=== PATIENT | female | born 1935 | race Caucasian/White ===

== ENCOUNTER → 2017-12-01 | Outpatient (CLI) | payer MEDICARE ==
[~2017-12-01] MED LIST: AGM875T PO; ALPH1TAB8 PO; ALPR1T PO; ALPR1TAB7 PO; ALPR2TAB6 PO; AMLO5TAB2 PO; CLON1TAB4 PO; DICY20TA10 PO; DOCU-143 PO; DOCU100C37 PO; ESCI20TA38 PO; EST30C VG; FLUT16SP22 NS; HYDR-757 PO; IBUP-30 PO; IOHEXOL 350 MG/ML 100 ML (OMNIPAQUE 350) VIAL IV ONE; LACT1CAP61 PO; LEVO50TA6 PO; LEVSIN; LOSA50TA36 PO; LOSA50TA6 PO; LSNP20T PO; LVT.025T PO; LVT.05T PO; METO-333 PO; METO50TA7; MIRT30TA PO; MIRT30TA6 PO; MTC5T; NF-ESOM40C PO; NS 250 ML (IVPB) BAG IV ONE; PANT40TA PO; PANT40TA2 PO; PANT40TA3 PO; PARO40TA PO; POLY119P5 PO; POLY255P PO; PRX10T; Polyethylene Glycol PO; SCR1T1; SIME80TA6 PO; SUCR1TAB PO
[2017-12-01 11:37] LABS: BUN/CREATININE RATIO 10; CREATININE SERUM 0.86 MG/DL (0.60-1.30); GFR ESTIMATED > 60
--- NOTE | 2017-12-01 12:39 | Diagnostic Imaging Report ---
PROCEDURE: CT abdomen and pelvis with contrast. TECHNIQUE: Multiple contiguous axial images were obtained through the abdomen and pelvis after administration of intravenous contrast. INDICATION: Periumbilical abdominal pain. Patient has had prior partial small bowel resection. COMPARISON: Comparison is made with prior CT from 08/30/2015. FINDINGS: The lung bases are clear. Mild generalized low density throughout the liver is seen consistent with hepatic steatosis. No discrete liver mass is identified. The gallbladder is surgically absent. Extrahepatic bile duct appears to be stable when compared with prior study. The pancreas and spleen are unremarkable. No adrenal mass is identified. Kidneys are unremarkable. Aorta is ectatic and demonstrates atherosclerotic changes. No definite aneurysm is seen. Bowel loops are of normal caliber. No obstruction is seen. There is sigmoid diverticulosis but no evidence of acute diverticulitis. Bladder and uterus are unremarkable. No definite abdominal or pelvic lymphadenopathy is seen. IMPRESSION: 1. Hepatic steatosis. 2. Uncomplicated diverticulosis. 3. No acute feature in the abdomen or pelvis is identified. Dictated by: Dictated on workstation # [id number]
== END ==
LOC: RAD 10:45
PROVIDERS: ATTEND Surgery
DX: K76.0 Fatty (change of) liver, not elsewhere classified (principal); K57.30 Diverticulosis of large intestine without perforation or abscess without bleeding
CPT/HCPCS: 36415; 74177; 82565; 84520

== ENCOUNTER 2018-01-15 17:24 | Inpatient (IN) | payer MEDICARE ==
[~2018-01-15] VITALS: Ht 162.6 cm; Wt 52.6 kg
[~2018-01-15 17:24] MED LIST changes: +AMLO5TAB7 PO; +CLON1TAB13 PO; -CLON1TAB4 PO; +HYDR-4226 PO; -HYDR-757 PO; -IOHEXOL 350 MG/ML 100 ML (OMNIPAQUE 350) VIAL IV ONE; -LOSA50TA36 PO; +LOSA50TA7 PO; -NS 250 ML (IVPB) BAG IV ONE
[2018-01-15] MEDS ORDERED: fentaNYL INJECTION 100 MCG/2 ML AMP IVP ONE (18:00)
[2018-01-15] MEDS ORDERED: NS 250 ML (IVPB) BAG IV ONE (18:15)
[2018-01-15] MEDS ORDERED: CATHETER FLUSH 10 ML SYR IV PRN (18:15)
[2018-01-15] MEDS ORDERED: IOHEXOL 350 MG/ML 100 ML (OMNIPAQUE 350) VIAL IV ONE (18:15)
[2018-01-15 18:16] LABS: BASOPHILS % (AUTO) 1 % (0-10); EOSINOPHILS # (AUTO) 0.1 10^3/uL (0.0-0.3); EOSINOPHILS % (AUTO) 1 % (0-10); HEMATOCRIT 42 % (35-52); HEMOGLOBIN 13.7 G/DL (11.5-16.0); LYMPHOCYTES # (AUTO) 1.1 X 10^3 (1.0-4.0); LYMPHOCYTES % (AUTO) 18 % (12-44); MEAN CORPUSCULAR HEMOGLOBIN 29 PG (25-34); MEAN CORPUSCULAR HGB CONC 33 G/DL (32-36); MEAN CORPUSCULAR VOLUME 89 FL (80-99); MEAN PLATELET VOLUME 9.3 FL (7.4-10.4); MONOCYTES # (AUTO) 0.9 X 10^3 (0.0-1.0); MONOCYTES % (AUTO) 14 % (0-12); NEUTROPHILS # (AUTO) 4.3 X 10^3 (1.8-7.8); NEUTROPHILS % (AUTO) 66 % (42-75); PLATELET COUNT 393 10^3/uL (130-400); RED BLOOD COUNT 4.67 10^6/uL (4.35-5.85); RED CELL DISTRIBUTION WIDTH 14.1 % (10.0-14.5); WHITE BLOOD COUNT 6.5 10^3/uL (4.3-11.0)
[2018-01-15 18:40] LABS: ALBUMIN 4.1 GM/DL (3.2-4.5); BILIRUBIN,TOTAL 0.4 MG/DL (0.1-1.0); CALCIUM 10.1 MG/DL (8.5-10.1); POTASSIUM 3.3 MMOL/L (3.6-5.0); TOTAL PROTEIN 7.7 GM/DL (6.4-8.2)
--- NOTE | 2018-01-15 18:43 | Diagnostic Imaging Report ---
PROCEDURE: CT abdomen and pelvis with contrast. TECHNIQUE: Multiple contiguous axial images were obtained through the abdomen and pelvis after administration of intravenous contrast. INDICATION: Perirectal cellulitis. Worsening right-sided pain. COMPARISON: CT pelvis with IV contrast 12/29/2017. FINDINGS: Since the prior exam, the previously seen inflammatory changes in the right perineum and buttocks extending into the right margin of the rectum have evolved into a lobulated peripheral enhancing fluid collection measuring up to 4.7 x 6.5 x at least 10 cm. Advanced colonic diverticulosis without evidence of active diverticulitis. No evidence of bowel obstruction. No free intraperitoneal air or fluid. No lymphadenopathy. Lung bases are clear. The liver, pancreas, spleen, adrenals, kidneys, collecting systems and unopacified bladder are unremarkable. Small bowel anastomosis in the anterior abdomen. Infrarenal abdominal aortic aneurysm measures up to 3.0 cm. No acute osseous findings. IMPRESSION: Interval development of a lobulated peripherally enhancing fluid collection consistent with abscess extending from the right margin of the rectum into the right peroneal and gluteal subcutaneous soft tissues. Dictated by: Dictated on workstation # [id number]
[2018-01-15 18:46] LABS: BILIRUBIN,URINE NEGATIVE (NEGATIVE); CLARITY,URINE CLEAR; COLOR,URINE YELLOW; GLUCOSE, URINE (UA) NEGATIVE (NEGATIVE); KETONES,URINE NEGATIVE (NEGATIVE); LEUKOCYTE ESTERASE ,URINE NEGATIVE (NEGATIVE); NITRITE,URINE NEGATIVE (NEGATIVE); PH,URINE 6 (5-9); PROTEIN,URINE NEGATIVE (NEGATIVE); UROBILINOGEN,URINE NORMAL (NORMAL)
--- NOTE | 2018-01-15 18:47 | ED Integumentary General ---
General Stated Complaint: CELLULITS Source: patient Exam Limitations: no limitations History of Present Illness Date Seen by Provider: Jan 15, 2018 Time Seen by Provider: 18:45 Initial Comments To ER with reports of persistent cellulitis. Rectal in location. She was discharged from here 11 days ago for perirectal cellulitis. Surgery was consult , there was no surgical intervention is no abscess was found. She was given IV Rocephin and vancomycin. She states that she never really improved in symptoms. She then saw Dr. Lam from obstetrics and gynecology on 01/11/18 and was restarted on Augmentin for recurrence of her perirectal pain and swelling. She is still on this but presents today with worsening pain and swelling. Timing/Duration: constant Severity: moderate Location: genitalia Allergies and Home Medications Allergies Coded Allergies: Sulfa (Sulfonamide Antibiotics) (Unverified Allergy, Unknown, 01/23/14) cetirizine (Verified Allergy, Unknown, 10/08/07) ciprofloxacin (Unverified Allergy, Unknown, 01/23/14) erythromycin base (Verified Allergy, Unknown, 10/08/07) Home Medications Amlodipine Besylate 5 Mg Tablet, 5 MG PO DAILY PRN for BP>140, (Reported) TAKES AN ADDITIONAL 5MG TABLET FOR BLOOD PRESSURE ABOVE 140 Amlodipine Besylate 5 Mg Tablet, 5 MG PO DAILY, (Reported) Clonazepam 1 Mg Tablet, 1 MG PO QID PRN for ANXIETY, (Reported) Docusate Sodium 100 Mg Capsule, 100 MG PO BID PRN for CONSTIPATION-1ST LINE, ( Reported) Estrogens Conjugated 30 Gm Cr, VG 2X WEEKLY, (Reported) Ibuprofen 200 Mg Tablet, 400 MG PO TID PRN for PAIN-MILD, (Reported) Lactobacillus Rhamnosus R0011 1 Each Capsule, 1 CAP PO DAILY, (Reported) Levothyroxine Sodium 50 Mcg Tablet, 25 MCG PO DAILY, (Reported) TAKES 1/2 (50MCG) TABLET Losartan Potassium 50 Mg Tablet, 50 MG PO DAILY, (Reported) Metoprolol Tartrate 25 Mg Tablet, 12.5 MG PO DAILY PRN for PALPITATIONS, ( Reported) Mirtazapine 30 Mg Tablet, 30 MG PO HS, (Reported) Pantoprazole Sodium 40 Mg Tablet.dr, 40 MG PO BID, (Reported) Patient Home Medication List Home Medication List Reviewed: Yes Review of Systems Review of Systems Constitutional: see HPI; No chills, No fever EENTM: see HPI Respiratory: no symptoms reported Cardiovascular: no symptoms reported Genitourinary: no symptoms reported Musculoskeletal: no symptoms reported Skin: see HPI Psychiatric/Neurological: No Symptoms Reported Endocrine: No Symptoms Reported Past Tevjako-Jrabhk-Vhsuff Hx Patient Social History Recent Hopitalizations: No Seasonal Allergies Seasonal Allergies: No Past Medical History Surgeries: Yes Abdominal, Bladder Surgery, Cardiac, Coronary Stent, Gallbladder Respiratory: No Currently Using CPAP: No Currently Using BIPAP: No Cardiac: Yes Atrial Fibrillation, Coronary Artery Disease, Hypertension, Irregular Heartbeat Neurological: No TIA Reproductive Disorders: No Genitourinary: No Gastrointestinal: Yes (BLADDER PROLAPSE, ) Gastroesophageal Reflux, Obstructive Bowel, Chronic Constipation, Diverticulosis , Irritable Bowel Musculoskeletal: No Endocrine: Yes Hypothyroidsim HEENT: No Cancer: No Psychosocial: Yes Anxiety, Depression Integumentary: No (THIN SKIN) Blood Disorders: No Adverse Reaction/Blood Tranf: No Family Medical History Cardiovascular disease 19 MOTHER ( with chf) G8 BROTHER (mi of heart problems) Diabetes mellitus 19 MOTHER Hypertension 19 MOTHER Neoplasm 19 FATHER (lung ca :) No Pertinent Family Hx Physical Exam Vital Signs Capillary Refill : General Appearance: WD/WN, no apparent distress HEENT: PERRL/EOMI, normal ENT inspection Neck: non-tender, full range of motion Respiratory: no respiratory distress, no accessory muscle use Gastrointestinal: normal bowel sounds, non tender, soft Extremities: normal range of motion, non-tender Neurologic/Psychiatric: alert, oriented x 3, depressed affect Skin: normal color, warm/dry Progress/Results/Core Measures Results/Orders Lab Results Laboratory Tests Test 01/15/18 18:06 01/15/18 18:34 01/15/18 18:43 Range/Units White Blood Count 6.5 4.3-11.0 10^3/uL Red Blood Count 4.67 4.35-5.85 10^6/uL Hemoglobin 13.7 11.5-16.0 G/DL Hematocrit 42 35-52 % Mean Corpuscular Volume 89 80-99 FL Mean Corpuscular Hemoglobin 29 25-34 PG Mean Corpuscular Hemoglobin Concent 33 32-36 G/DL Red Cell Distribution Width 14.1 10.0-14.5 % Platelet Count 393 130-400 10^3/uL Mean Platelet Volume 9.3 7.4-10.4 FL Neutrophils (%) (Auto) 66 42-75 % Lymphocytes (%) (Auto) 18 12-44 % Monocytes (%) (Auto) 14 H 0-12 % Eosinophils (%) (Auto) 1 0-10 % Basophils (%) (Auto) 1 0-10 % Neutrophils # (Auto) 4.3 1.8-7.8 X 10^3 Lymphocytes # (Auto) 1.1 1.0-4.0 X 10^3 Monocytes # (Auto) 0.9 0.0-1.0 X 10^3 Eosinophils # (Auto) 0.1 0.0-0.3 10^3/uL Basophils # (Auto) 0.0 0.0-0.1 10^3/uL Sodium Level 138 135-145 MMOL/L Potassium Level 3.3 L 3.6-5.0 MMOL/L Chloride Level 103 98-107 MMOL/L Carbon Dioxide Level 25 21-32 MMOL/L Anion Gap 10 5-14 MMOL/L Blood Urea Nitrogen 4 L 7-18 MG/DL Creatinine 1.00 0.60-1.30 MG/DL Estimat Glomerular Filtration Rate 53 BUN/Creatinine Ratio 4 Glucose Level 107 H 70-105 MG/DL Calcium Level 10.1 8.5-10.1 MG/DL Corrected Calcium 10.0 8.5-10.1 MG/DL Total Bilirubin 0.4 0.1-1.0 MG/DL Aspartate Amino Transf (AST/SGOT) 22 5-34 U/L Alanine Aminotransferase (ALT/SGPT) 17 0-55 U/L Alkaline Phosphatase 87 40-136 U/L Total Protein 7.7 6.4-8.2 GM/DL Albumin 4.1 3.2-4.5 GM/DL Urine Color YELLOW Urine Clarity CLEAR Urine pH 6 5-9 Urine Specific Marlin 1.010 L 1.016-1.022 Urine Protein NEGATIVE NEGATIVE Urine Glucose (UA) NEGATIVE NEGATIVE Urine Ketones NEGATIVE NEGATIVE Urine Nitrite NEGATIVE NEGATIVE Urine Bilirubin NEGATIVE NEGATIVE Urine Urobilinogen NORMAL NORMAL MG/DL Urine Leukocyte Esterase NEGATIVE NEGATIVE Urine RBC (Auto) NEGATIVE NEGATIVE Urine RBC NONE /HPF Urine WBC NONE /HPF Urine Squamous Epithelial Cells 0-2 /HPF Urine Crystals NONE /LPF Urine Bacteria NONE /HPF Urine Casts NONE /LPF Urine Mucus NEGATIVE /LPF Urine Culture Indicated NO Lactic Acid Level 1.57 0.50-2.00 MMOL/L My Orders Orders - QUINNWADE PHOTOGRAPHIC LITHOGRAPHER Cbc With Automated Diff (01/15/18 17:55) Comprehensive Metabolic Panel (01/15/18 17:55) Ua Culture If Indicated (01/15/18 17:55) Blood Culture (01/15/18 17:55) Lactic Acid Analyzer (01/15/18 17:55) Iv Heplock-Insert (Order) (01/15/18 17:55) Fentanyl Injection (Sublimaze Injection (01/15/18 18:00) Ct Abdomen/Pelvis W (01/15/18 17:55) Iohexol Injection (Omnipaque 350 Mg/Ml 1 (01/15/18 18:15) Sodium Chloride Flush (Catheter Flush Sy (01/15/18 18:15) Ns (Ivpb) (Sodium Chloride 0.9%) (01/15/18 18:15) Medications Given in ED Current Medications Medications Dose Ordered Sig/Neha Route Start Time Stop Time Status Last Admin Dose Admin Iohexol 100 ml ONCE ONCE IV 01/15/18 18:15 01/15/18 18:16 DC 01/15/18 18:22 100 ML Sodium Chloride 10 ml NEEDED PRN IV 01/15/18 18:15 01/15/18 18:22 10 ML Sodium Chloride 250 ml ONCE ONCE IV 01/15/18 18:15 01/15/18 18:16 DC 01/15/18 18:22 80 ML Departure Communication (Admissions) Time/Spoke to Admitting Phy: 19:[address] Fang who is on-call for surgery. We will admit the patient with IV Zosyn, fentanyl, Tylenol for fever, Zofran for nausea. Clear liquids currently and nothing by mouth after midnight with a tentative plan for exam under anesthesia and incision and drainage of the right perirectal abscess at 10 AM tomorrow morning. Time/Spoke to Consulting Phy: 19:14 Dr. Randhawa from medicine will consult Impression Primary Impression: Perirectal abscess Additional Impression: Anxiety Disposition: ADMITTED INPATIENT Condition: Stable Admissions Decision to Admit Reason: Admit from ER (General) Decision to Admit/Date: Jan 15, 2018 Time/Decision to Admit Time: 19:15 Departure-Patient Inst. Referrals: HETLINGER,KG E MD (PCP/Family) Primary Care Physician WADE QUINN PHOTOGRAPHIC LITHOGRAPHER Jan 15, 2018 18:47
[2018-01-15 18:53] LABS: SQUAMOUS EPITHELIAL CELL,UR 0-2 /HPF
[2018-01-15] MEDS ORDERED: meTOprolol 5 MG/5 ML (LOPRESSOR) VIAL IV ONE (19:30)
--- NOTE | 2018-01-15 19:31 | Progress Note-Pre Operative ---
Pre-Operative Progress Note H&P Reviewed The H&P was reviewed, patient examined and no changes noted. Date Seen by Provider: Jan 15, 2018 Time Seen by Provider: 19:30 Date H&P Reviewed: Jan 15, 2018 Time H&P Reviewed: 19:30 Pre-Operative Diagnosis: perianal and ischiorectal abscess HANY HKAN MD Jan 15, 2018 19:31
[2018-01-15] MEDS ORDERED: LORazepam INJ 2 MG/ML (ATIVAN) VIAL IVP PRN (19:45)
[2018-01-15 20:05] VITALS: BP 155/91
--- NOTE | 2018-01-15 20:09 | HISTORY AND PHYSICAL ---
DATE OF SERVICE: ATTENDING PRIMARY CARE PHYSICIAN: Salvatore Garcia MD HISTORY OF PRESENT ILLNESS: The patient is an 82-year-old female who presented to the Emergency Department today with persistent cellulitis and pain in the right buttock and perineal region. She first developed this approximately 2 weeks ago and was admitted for perirectal cellulitis, however, no abscess was identified at that time. She was started on IV Rocephin and vancomycin and then eventually discharged home. She reports that the pain persisted and then she was seen by gynecology and was started on Augmentin; however, the pain and swelling have worsened since that time. A CT scan was performed, which did show a large perianal and perirectal abscess with the dimensions 5 x 6 x 10 cm in size. She does not report taking any immunosuppressants including no steroids. PAST MEDICAL HISTORY: Coronary artery disease; hypertension; history of atrial fibrillation, which is controlled; history of bladder prolapse; gastroesophageal reflux disease; chronic constipation; diverticulosis; irritable bowel syndrome; anxiety; depression. PAST SURGICAL HISTORY: Laparoscopic cholecystectomy, bladder suspension. ALLERGIES: SULFA, CETIRIZINE, CIPROFLOXACIN, ERYTHROMYCIN. MEDICATIONS: Amlodipine 5 mg daily, clonazepam 1 mg q.i.d. p.r.n., Colace 100 mg b.i.d., estrogen 30 g cream 2 times a week, levothyroxine 50 mcg daily, losartan 50 mg daily, metoprolol 25 mg daily, mirtazapine 30 mg at bedtime, Protonix 40 mg b.i.d. SOCIAL HISTORY: Negative smoke, negative alcohol. FAMILY HISTORY: Brother; diabetes, history of myocardial infarction. Mother; CHF, hypertension. Father, lung cancer. VITAL SIGNS: Stable, afebrile. REVIEW OF SYSTEMS: Well-nourished female currently guarded secondary to the right-sided perianal and perirectal pain. She is not experiencing any shortness of breath or difficulty breathing. No chest pain, palpitations or diaphoresis. No nausea or vomiting. History of constipation. No diarrhea, no red blood per rectum, no dark tarry stools. No fever or chills. No recent inadvertent weight loss. All other review of systems is negative. PHYSICAL EXAMINATION: CHEST: Clear. Good breath sounds bilaterally. HEART: Regular, no murmurs. EXTREMITIES: No lower extremity edema. Negative Homans sign. HEENT: No scleral icterus. NECK: No cervical lymphadenopathy. ABDOMEN: Soft, nontender, nondistended. PERINEUM: There is a redness and swelling along the right perianal region with fluctuance consistent with an abscess. LABORATORY DATA: WBC 6.5, hemoglobin 13.7, hematocrit 42, platelets 393, BUN 4, creatinine 1.0. Urinalysis is normal. ASSESSMENT AND PLAN: An 82-year-old female with right-sided perianal and perirectal abscess of significant size and up to 10 cm in largest dimension. We will admit her, start her on IV fluids and antibiotics and proceed with anorectal exam under anesthesia as well as incision and drainage of the abscess as well as a Upton drain placement. Job ID: [id number] DocumentID: [id number] Dictated Date: 01/15/2018 19:30:26 Printing Engineer Date: 01/15/2018 20:08:10 Dictated By: HANY KHAN MD
[2018-01-15] MEDS ORDERED: PIPERACILLIN/TAZO 4.5 GM/NS 100 ML IV NR ×2 (20:15)
[2018-01-15] MEDS ORDERED: ACETAMINOPHEN 325 MG TABLET PO PRN (20:30)
[2018-01-15] MEDS: fentaNYL INJECTION 100 MCG/2 ML AMP IV PRN (20:38)
[2018-01-15] MEDS: LORazepam INJ 2 MG/ML (ATIVAN) VIAL IV PRN (20:39)
[2018-01-15] MEDS: NS W/KCL 40 MEQ/L 1,000 ML IV SCH (20:39)
[2018-01-16] VITALS: BP 114/69
[2018-01-16] MEDS: PIPERACILLIN/TAZO 4.5 GM/NS 100 ML IV SCH ×6 (02:07→17:37)
[2018-01-16 04:00] VITALS: BP 120/73
[2018-01-16] MEDS ORDERED: AMOX-358 PO (07:49)
[2018-01-16 08:00] VITALS: BP 131/76
[2018-01-16] MEDS: NS W/KCL 40 MEQ/L 1,000 ML IV SCH (08:03)
[2018-01-16] MEDS: LORazepam INJ 2 MG/ML (ATIVAN) VIAL IV PRN (08:03)
[2018-01-16] MEDS: ONDANSETRON 4 MG/2 ML (SDV) Z0FRAN IV PRN (08:03)
[2018-01-16] MEDS ORDERED: fentaNYL INJECTION 100 MCG/2 ML AMP ONE (09:37)
[2018-01-16] MEDS ORDERED: FAMOTIDINE 20MG/2ML IV (PEPCID) ONE (09:43)
[2018-01-16] MEDS ORDERED: LACTATED RINGERS 1,000 ML IV PRN (09:53)
[2018-01-16] MEDS ORDERED: LIDOCAINE PF 2% 5 ML (XYLOCAINE) VIAL ONE (09:59)
[2018-01-16] MEDS ORDERED: ONDANSETRON 4 MG/2 ML (SDV) Z0FRAN ONE (09:59)
[2018-01-16] MEDS ORDERED: proPOfol 200 MG/20 ML (DIPRIVAN) VIAL IV ONE (09:59)
[2018-01-16] MEDS ORDERED: DEXAMETHASONE 10 MG/ML (DECADRON) 1 ML VIAL ONE (09:59)
[2018-01-16] MEDS ORDERED: SEVOFLURANE (ULTANE) 15 ML INHAL SOLN ONE (09:59)
[2018-01-16] MEDS ORDERED: BUP/EPI 0.5% 1:200,000 (SENSORCAINE) 30 ML VIAL ONE (10:01)
[2018-01-16] MEDS ORDERED: morphine INJ 10 MG/ML 1ML (SYR OR VIAL) ONE (10:17)
--- NOTE | 2018-01-16 11:15 | Progress Note-Post Operative ---
Post-Operative Progess Note Surgeon (s)/Audit Senior Associate (s) Surgeon HANY KHAN MD Audit Senior Associate: rach gregorio APPLICATIONS PACKAGER Pre-Operative Diagnosis perianal and ischiorectal abscess Post-Operative Diagnosis same Procedure & Operative Findings Date of Procedure 01/16/18 Procedure Performed/Findings incision and drainage ischiorectal abscess. Anesthesia Type general LMA Estimated Blood Loss Estimated blood loss (mL): minimal Specimens/Packing Specimens Removed drainage abscess HANY KHAN MD Jan 16, 2018 11:15 am
[2018-01-16] MEDS ORDERED: morphine INJ 10 MG/ML 1ML (SYR OR VIAL) IVP ONE (11:30)
[2018-01-16] MEDS ORDERED: ONDANSETRON 4 MG/2 ML (SDV) Z0FRAN IVP PRN (11:30)
[2018-01-16 12:00] VITALS: BP 135/78
[2018-01-16] MEDS ORDERED: DOCUSATE SODIUM 100 MG (COLACE) CAP PO PRN (15:00)
[2018-01-16] MEDS ORDERED: IBUPROFEN TABLET 200 MG TAB PO PRN (15:00)
[2018-01-16] MEDS ORDERED: meTOprolol TARTRATE 25 MG (LOPRESSOR) TABLET PO PRN (15:00)
[2018-01-16 15:41] VITALS: BP 132/81
[2018-01-16] MEDS: clonazePAM 1 MG (KlonoPIN) TAB PO PRN (16:49)
[2018-01-16] MEDS ORDERED: PANTOPRAZOLE 40 MG (PROTONIX) TAB PO ONE (17:33)
[2018-01-16] MEDS: PANTOPRAZOLE 40 MG (PROTONIX) TAB PO SCH (17:37)
[2018-01-16 19:42] VITALS: BP 118/71
--- NOTE | 2018-01-16 19:47 | OPERATIVE REPORT ---
DATE OF SERVICE: 01/16/2018 ATTENDING PRIMARY CARE PHYSICIAN: Dr. Salvatore Garcia. PREOPERATIVE DIAGNOSIS: Perianal and ischiorectal abscess. POSTOPERATIVE DIAGNOSIS: Perianal and ischiorectal abscess. PROCEDURE: Incision and drainage of perirectal and ischiorectal abscess. SURGEON: Hany Khan MD ATTRACTIONS ASSOCIATE: Terry Nuñez APRN. ANESTHESIA: General laryngeal mask airway. ESTIMATED BLOOD LOSS: Minimal. FINDINGS: Large abscess, which was on the right side of the rectum; however, crossing midline posteriorly and to the level of the puborectalis muscle. DISPOSITION: The patient tolerated the procedure well. INDICATIONS: The patient is an 82-year-old female who presented with a persistent cellulitis, pain of the right buttock region and perineal region. She first developed this two weeks ago and was admitted for perirectal cellulitis; however, no abscess was identified at that time. She was started on IV Rocephin and vancomycin and eventually discharged home. She reports that the pain persisted and then worsened over time and was then seen by her container packer operator and was started on Augmentin; however, the pain and swelling worsened. A CT scan was performed, which showed a large perirectal and ischiorectal abscess 5 x 6 x 10 cm in size. DESCRIPTION OF PROCEDURE: The patient was brought to the operating room, laid supine on the table. After adequate IV pain sedative medications and general laryngeal mask airway intubation, the patient was placed in lithotomy and the perineum was prepped and draped in standard surgical fashion. A 0.5% Marcaine with epinephrine was then used to anesthetize the right perirectal region. A crescent-shaped skin incision was then made using a 15 blade. The more superficial component of the perirectal abscess was then identified. We then proceeded with a blunt dissection using finger sweep motion opening and draining the other two abscesses. The abscess did cross the midline posteriorly and did reach the puborectalis muscle superiorly. Fluid was sent for culture and sensitivity. The abscess cavity was then copiously irrigated and suctioned out. A 1-inch Jose Angel drain was then placed to keep the cavity stented open and sutured to the skin using interrupted 2-0 silk sutures. The wound was then covered with gauze and ABD pad. The patient tolerated the procedure well. We will continue with wound care with Sitz baths q.i.d. as well as frequent dressing changes. We will also continue with IV antibiotics and pain control. Job ID: [id number] DocumentID: [id number] Dictated Date: 01/16/2018 11:30:41 Top Precipitator Operator Helper Date: 01/16/2018 19:46:23 Dictated By: HANY KHAN MD MTDD
[2018-01-16] MEDS: MIRTAZAPINE 15 MG (REMERON) TAB PO SCH (20:39)
[2018-01-17] VITALS (7 sets, daily range): BP systolic 115–149; BP diastolic 67–79
[2018-01-17] MEDS: PIPERACILLIN/TAZO 4.5 GM/NS 100 ML IV SCH ×6 (01:25→17:08)
[2018-01-17] MEDS: fentaNYL INJECTION 100 MCG/2 ML AMP IV PRN ×2 (01:32→12:28)
[2018-01-17] MEDS: LEVOTHYROXINE 25 MCG (LEVOTHROID) TAB PO SCH (08:14)
[2018-01-17] MEDS: PANTOPRAZOLE 40 MG (PROTONIX) TAB PO SCH ×2 (08:14→20:11)
[2018-01-17] MEDS: amLODIPine 5 MG (NORVASC) TAB PO SCH (08:14)
[2018-01-17] MEDS: clonazePAM 1 MG (KlonoPIN) TAB PO PRN ×2 (08:14→18:12)
[2018-01-17] MEDS: LACTOBACILLUS Acidoph/Bulgar (LACTINEX/FLORANEX) TAB PO SCH (08:14)
[2018-01-17] MEDS: LOSARTAN 50 MG (COZAAR) TAB PO SCH (08:14)
--- NOTE | 2018-01-17 10:14 | Progress Note (SOAP) ---
Subjective Date Seen by Provider: Jan 17, 2018 Time Seen by Provider: 09:40 Subjective/Events-last exam Patient seen with Dr. Fang. Patient reports doing well. Tolerating diet and ambulating. Having BMs and passing gas. No fever/chills. Reports minimal discomfort from right buttock area. Reports that she has been changing the dressing herself when she goes to the bathroom. Focused Exam Lactate Level 01/15/18 18:43: Lactic Acid Level 1.57 Objective Exam Vital Signs Date Time Temp Pulse Resp B/P (MAP) Pulse Ox O2 Delivery O2 Flow Rate FiO2 01/17/18 08:13 98.9 65 14 149/75 (99) 95 Room Air 01/17/18 07:00 66 01/17/18 04:00 97.2 72 20 129/79 (96) 96 Room Air 01/17/18 01:00 75 01/17/18 00:00 97.8 78 20 125/78 (94) 95 Room Air 01/16/18 19:42 98.2 81 18 118/71 (87) 94 Room Air 01/16/18 19:00 95 01/16/18 15:41 98.1 99 18 132/81 (98) 96 Room Air 01/16/18 13:00 100 01/16/18 12:00 97.6 83 18 135/78 (97) 93 Room Air I & O 01/17/18 07:00 Intake Total 2650 ml Output Total 2850 ml Balance -200 ml Capillary Refill : Less Than 3 Seconds General Appearance: No Apparent Distress, WD/WN Neck: Full Range of Motion, Normal Inspection, Non Tender, Supple Respiratory: Chest Non Tender, No Accessory Muscle Use, No Respiratory Distress Cardiovascular: Regular Rate, Rhythm, No Murmur Gastrointestinal: normal bowel sounds, non tender, soft Extremity: Normal Capillary Refill, Normal Inspection, Normal Range of Motion Neurologic/Psychiatric: Alert, Oriented x3 Skin: Normal Color, Warm/Dry (There is a open incision of the right buttock with liam drain in place. There is some minimal bloody drainage. No redness or purulent drainage.) Results Lab Microbiology 01/15/18 Blood Culture - Preliminary, Resulted No growth 01/16/18 Gram Stain - Final, Resulted 01/16/18 Anaerobic Culture - Preliminary, Resulted Sent To [facility] 01/16/18 Surgical Culture - Preliminary, Resulted Sent To [facility] Assessment/Plan Assessment/Plan Assess & Plan/Chief Complaint An 82 year old female with a ischiorectal abscess who is S/P I&D. VSS. Continue with medical management with IV antibiotics, pain and nausea medication. Dressing changes BID and as needed. Clinical Quality Measures DVT/VTE Risk/Contraindication: Risk Factor Score Per Nursin RFS Level Per Nursing on Admit: 3=High MAMI JACOBSEN APRN Jan 17, 2018 10:14
[2018-01-17] MEDS: HYDROcodone/APAP 7.5 MG/325 MG (LORTAB, LORCET PLUS) TABLET PO PRN (10:38)
--- NOTE | 2018-01-17 10:58 | Consultation-Hospitalist ---
HPI History of Present Illness: HPI/Chief Complaint Pt is an 82yoCF known to me from recent admission who was admitted to the hospital due to perirectal abscess. She underwent drainage under anesthesia yesterday by Dr Fang. I am consulted from medical management. She states she is doing well. She is having loose bowel movements and eating and drinking well. She states she just now developed some pain but otherwise has had minimal pain. She has no concerns or complaints. 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 Patients Allergies have been reviewed. Allergies Allergies Coded Allergies Sulfa (Sulfonamide Antibiotics) (Unverified Allergy, Unknown, 01/23/14) cetirizine (Verified Allergy, Unknown, 10/08/07) ciprofloxacin (Unverified Allergy, Unknown, 01/23/14) erythromycin base (Verified Allergy, Unknown, 10/08/07) Past Yfojshs-Aczqqi-Xznecj Hx Past Med/Social Hx: Reviewed Nursing Past Med/Soc Hx Patient Social History Alcohol Use: Denies Use Recreational Drug Use: No Smoking Status: Never a Smoker Physical Abuse Screen: No Sexual Abuse: No Recent Foreign Travel: No Contact w/other who traveled: No Recent Hopitalizations: Yes Recent Infectious Disease Expo: No Immunizations Up To Date Tetanus Booster (TDap): Unknown Seasonal Allergies Seasonal Allergies: No Past Medical History Surgeries: Abdominal, Bladder Surgery, Cardiac, Coronary Stent, Gallbladder Currently Using CPAP: No Currently Using BIPAP: No Cardiac: Atrial Fibrillation, Coronary Artery Disease, Hypertension, Irregular Heartbeat Neurological: TIA Reproductive: No Sexually Transmitted Disease: No HIV/AIDS: No Gastrointestinal: Gastroesophageal Reflux, Obstructive Bowel, Chronic Constipation, Diverticulosis, Irritable Bowel Endocrine: Hypothyroidsim Psychosocial: Anxiety, Depression History of Blood Disorders: No Adverse Reaction to Blood Dooley: No Family History Cardiovascular disease 19 MOTHER ( with chf) G8 BROTHER (mi of heart problems) Diabetes mellitus 19 MOTHER Hypertension 19 MOTHER Neoplasm 19 FATHER (lung ca :) Heart Disease, Cancer, Diabetes, Hypertension Review of Systems Constitutional: No chills, No fever EENTM: No blurred vision, No double vision, No nose congestion, No throat pain Respiratory: No cough, No dyspnea on exertion, No short of breath Cardiovascular: No chest pain, No edema, No palpitations Gastrointestinal: No abdominal pain, No constipation, No nausea, No vomiting; other (rectal pain) Genitourinary: No dysuria, No frequency Musculoskeletal: No joint pain, No muscle pain Skin: No lesions, No rash Psychiatric/Neurological: Denies Headache, Denies Numbness, Denies Tingling Physical Exam Physical Exam Vital Signs Vital Signs - First Documented 01/15/18 01/15/18 17:44 19:48 Temp 97.5 Pulse 95 Resp 17 B/P (MAP) 139/99 (112) Pulse Ox 97 Capillary Refill : Less Than 3 Seconds Height, Weight, BMI Height: 5'4.00" Weight: 116lbs. 0.1oz. [id number]; 21.3 BMI Method:Stated General Appearance: No Apparent Distress, WD/WN HEENT: PERRL/EOMI, Moist Mucous Membranes Neck: Non Tender, Supple Respiratory: Lungs Clear, No Respiratory Distress Cardiovascular: Regular Rate, Rhythm, No Murmur Gastrointestinal: Normal Bowel Sounds, Non Tender, Soft Extremity: Normal Capillary Refill, No Calf Tenderness Neurologic/Psychiatric: Alert, Oriented x3, Normal Mood/Affect Skin: Normal Color, Warm/Dry Results Results/Procedures Labs Laboratory Tests 01/15/18 18:06 Patient resulted labs reviewed. Imaging: Reviewed Imaging Report Assessment/Plan Assessment and Plan Assess & Plan/Chief Complaint Perirectal abscess Diagnosis/Problems Diagnosis/Problems (1) Perirectal abscess Status: Acute Assessment & Plan: POD #1 Management per primary Pain management Await cultures Continue on Zosyn (2) Hypertension Status: Chronic Assessment & Plan: Well controlled, trend Qualifiers: Hypertension type: essential hypertension Qualified Codes: I10 - Essential (primary) hypertension (3) Hypothyroidism Status: Chronic Assessment & Plan: Continue home supplement Qualifiers: Hypothyroidism type: acquired Qualified Codes: E03.9 - Hypothyroidism, unspecified (4) Anxiety Status: Chronic Assessment & Plan: Ativan ordered Continue on Remeron Mood much improved from last admission Clinical Quality Measures DVT/VTE Risk/Contraindication: Risk Factor Score Per Nursin RFS Level Per Nursing on Admit: 3=High VETO HORTON MD Jan 17, 2018 10:58 am
--- NOTE | 2018-01-17 12:04 | Anesthesia-General Post-Op ---
General Patient Condition Mental Status/LOC: Same as Preop Cardiovascular: Satisfactory Nausea/Vomiting: Absent Respiratory: Satisfactory Pain: Controlled Complications: Absent Post Op Complications Complications None Follow Up Care/Instructions Patient Instructions None needed. Anesthesia/Patient Condition Patient Condition Patient is doing well, no complaints, stable vital signs, no apparent adverse anesthesia problems. No complications reported per nursing. GABRIELA BARRAGAN CRNA Jan 17, 2018 12:04
[2018-01-17] MEDS: ONDANSETRON 4 MG/2 ML (SDV) Z0FRAN IV PRN (17:07)
[2018-01-17] MEDS: MIRTAZAPINE 15 MG (REMERON) TAB PO SCH (20:11)
[2018-01-18] MEDS: PIPERACILLIN/TAZO 4.5 GM/NS 100 ML IV SCH ×6 (02:08→16:50)
[2018-01-18] MEDS: clonazePAM 1 MG (KlonoPIN) TAB PO PRN ×2 (03:08→20:07)
[2018-01-18 04:49] VITALS: BP 120/70
[2018-01-18 05:48] LABS: BASOPHILS % (AUTO) 0 % (0-10); EOSINOPHILS # (AUTO) 0.1 10^3/uL (0.0-0.3); EOSINOPHILS % (AUTO) 1 % (0-10); HEMATOCRIT 35 % (35-52); HEMOGLOBIN 11.8 G/DL (11.5-16.0); LYMPHOCYTES # (AUTO) 1.4 X 10^3 (1.0-4.0); LYMPHOCYTES % (AUTO) 20 % (12-44); MEAN CORPUSCULAR HEMOGLOBIN 30 PG (25-34); MEAN CORPUSCULAR HGB CONC 34 G/DL (32-36); MEAN CORPUSCULAR VOLUME 90 FL (80-99); MEAN PLATELET VOLUME 9.3 FL (7.4-10.4); MONOCYTES # (AUTO) 0.9 X 10^3 (0.0-1.0); MONOCYTES % (AUTO) 13 % (0-12); NEUTROPHILS # (AUTO) 4.6 X 10^3 (1.8-7.8); NEUTROPHILS % (AUTO) 65 % (42-75); PLATELET COUNT 286 10^3/uL (130-400); RED BLOOD COUNT 3.91 10^6/uL (4.35-5.85); RED CELL DISTRIBUTION WIDTH 14.3 % (10.0-14.5)
[2018-01-18 06:08] LABS: BUN/CREATININE RATIO 6; CALCIUM 9.2 MG/DL (8.5-10.1); CARBON DIOXIDE 22 MMOL/L (21-32); CHLORIDE 110 MMOL/L (98-107); CREATININE SERUM 0.87 MG/DL (0.60-1.30); GFR ESTIMATED > 60; GLUCOSE 86 MG/DL (70-105); POTASSIUM 3.5 MMOL/L (3.6-5.0); SODIUM 141 MMOL/L (135-145)
[2018-01-18 08:00] VITALS: BP 136/79
[2018-01-18] MEDS: PANTOPRAZOLE 40 MG (PROTONIX) TAB PO SCH ×2 (08:16→20:07)
[2018-01-18] MEDS: LOSARTAN 50 MG (COZAAR) TAB PO SCH (08:16)
[2018-01-18] MEDS: amLODIPine 5 MG (NORVASC) TAB PO SCH (08:16)
[2018-01-18] MEDS: LEVOTHYROXINE 25 MCG (LEVOTHROID) TAB PO SCH (08:16)
[2018-01-18] MEDS: LACTOBACILLUS Acidoph/Bulgar (LACTINEX/FLORANEX) TAB PO SCH (08:16)
[2018-01-18] MEDS ORDERED: KCL 20 MEQ TAB (K-DUR) PO ONE (08:30)
--- NOTE | 2018-01-18 08:36 | Progress Note-Hospitalist ---
Subjective HPI/CC On Admission Date Seen by Provider: Jan 18, 2018 Time Seen by Provider: 08:31 Pt is an 82yoCF known to me from recent admission who was admitted to the hospital due to perirectal abscess. She underwent drainage under anesthesia yesterday by Dr Fang. I am consulted from medical management. She states she is doing well. She is having loose bowel movements and eating and drinking well. She states she just now developed some pain but otherwise has had minimal pain. She has no concerns or complaints. Subjective/Events-last exam Pt reports some pain near her surgical site worse after sitz bath. Discussed with RN that she doesn't like Lortab or Fentanyl as the make her sick or sleepy and refuses them for pain. Focused Exam Lactate Level 01/15/18 18:43: Lactic Acid Level 1.57 Objective Exam Vital Signs Vital Signs Date Time Temp Pulse Resp B/P (MAP) Pulse Ox O2 Delivery O2 Flow Rate FiO2 01/18/18 04:49 99.6 65 20 120/70 (87) 96 Room Air Capillary Refill : Less Than 3 Seconds General Appearance: No Apparent Distress, WD/WN Respiratory: Lungs Clear, No Respiratory Distress Cardiovascular: Regular Rate, Rhythm, No Murmur Gastrointestinal: Normal Bowel Sounds, Non Tender, Soft Extremity: No Calf Tenderness, No Pedal Edema Neurologic/Psychiatric: Alert, Oriented x3, Other (flat affect) Results/Procedures Lab Laboratory Tests 01/18/18 05:04 Patient resulted labs reviewed. Imaging: Reviewed Imaging Report Assessment/Plan Assessment and Plan Assess & Plan/Chief Complaint Perirectal abscess Diagnosis/Problems Diagnosis/Problems (1) Perirectal abscess Status: Acute Assessment & Plan: POD #2 Management per primary Pain management- will decrease fentanyl and add tramadol Await cultures- sent to [facility] Continue on Zosyn (2) Hypertension Status: Chronic Assessment & Plan: Well controlled, trend Qualifiers: Hypertension type: essential hypertension Qualified Codes: I10 - Essential (primary) hypertension (3) Hypothyroidism Status: Chronic Assessment & Plan: Continue home supplement Qualifiers: Hypothyroidism type: acquired Qualified Codes: E03.9 - Hypothyroidism, unspecified (4) Anxiety Status: Chronic Assessment & Plan: Ativan ordered Continue on Remeron Clinical Quality Measures DVT/VTE Risk/Contraindication: Risk Factor Score Per Nursin RFS Level Per Nursing on Admit: 3=High VETO HORTON MD Jan 18, 2018 08:36
--- NOTE | 2018-01-18 10:01 | Progress Note (SOAP) ---
Subjective Date Seen by Provider: Jan 18, 2018 Time Seen by Provider: 09:15 Subjective/Events-last exam Patient seen with Dr. Fang. Patient reports that she is depressed about the her wound. Explained to patient that we could get her help to take care of it. Patient denies any N/V as well as no fever/chills. Tolerating diet and ambulating. Having BMs. She does report increased discomfort of the right buttock area. Focused Exam Lactate Level 01/15/18 18:43: Lactic Acid Level 1.57 Objective Exam Vital Signs Date Time Temp Pulse Resp B/P (MAP) Pulse Ox O2 Delivery O2 Flow Rate FiO2 01/18/18 08:00 98.4 65 16 136/79 (98) 96 Room Air 01/18/18 04:49 99.6 65 20 120/70 (87) 96 Room Air 01/17/18 23:48 97.1 68 20 119/71 (87) 97 Room Air 01/17/18 19:41 97.9 62 18 124/70 (88) 94 Room Air 01/17/18 15:18 98.4 69 18 127/67 (87) 95 Room Air 01/17/18 12:00 98.3 71 20 115/69 (84) 96 Room Air I & O 01/18/18 07:00 Intake Total 2410 ml Output Total 2000 ml Balance 410 ml Capillary Refill : Less Than 3 Seconds General Appearance: No Apparent Distress, WD/WN Neck: Full Range of Motion, Normal Inspection, Non Tender, Supple Respiratory: Chest Non Tender, No Accessory Muscle Use, No Respiratory Distress Cardiovascular: Regular Rate, Rhythm, No Murmur Gastrointestinal: normal bowel sounds, non tender, soft Extremity: Normal Capillary Refill, Normal Inspection, Normal Range of Motion Neurologic/Psychiatric: Alert, Oriented x3 Skin: Normal Color, Warm/Dry, Other (Right buttock incision with liam drain. Minimal bloody drainge. No redness.) Results Lab Laboratory Tests 01/18/18 05:04: White Blood Count 7.0, Red Blood Count 3.91L, Hemoglobin 11.8, Hematocrit 35, Mean Corpuscular Volume 90, Mean Corpuscular Hemoglobin 30, Mean Corpuscular Hemoglobin Concent 34, Red Cell Distribution Width 14.3, Platelet Count 286, Mean Platelet Volume 9.3, Neutrophils (%) (Auto) 65, Lymphocytes (%) (Auto) 20, Monocytes (%) (Auto) 13H, Eosinophils (%) (Auto) 1, Basophils (%) (Auto) 0, Neutrophils # (Auto) 4.6, Lymphocytes # (Auto) 1.4, Monocytes # (Auto) 0.9, Eosinophils # (Auto) 0.1, Basophils # (Auto) 0.0, Sodium Level 141, Potassium Level 3.5L, Chloride Level 110H, Carbon Dioxide Level 22, Anion Gap 9, Blood Urea Nitrogen 5L, Creatinine 0.87, Estimat Glomerular Filtration Rate > 60, BUN/ Creatinine Ratio 6, Glucose Level 86, Calcium Level 9.2 Microbiology 01/15/18 Blood Culture - Preliminary, Resulted No growth 01/16/18 Gram Stain - Final, Resulted 01/16/18 Anaerobic Culture - Preliminary, Resulted Sent To [facility] 01/16/18 Surgical Culture - Preliminary, Resulted Staphylococcus aureus Assessment/Plan Assessment/Plan Assess & Plan/Chief Complaint An 82 year old female with a ischiorectal abscess who is S/P I&D. VSS. Continue with medical management with IV antibiotics, pain and nausea medication. Dressing changes BID and as needed. Clinical Quality Measures DVT/VTE Risk/Contraindication: Risk Factor Score Per Nursin RFS Level Per Nursing on Admit: 3=MAMI Witt APRN Jan 18, 2018 10:01 am
[2018-01-18] MEDS ORDERED: fentaNYL INJECTION 100 MCG/2 ML AMP IV PRN (10:30)
[2018-01-18 12:00] VITALS: BP 109/73
[2018-01-18] MEDS ORDERED: HYDR-34 PO (12:34)
--- NOTE | 2018-01-18 12:38 | Discharge Inst-Surgical ---
D/C Lap Instructions-KIDO New, Converted, or Re-Newed RX: RX on Chart Follow Up Appt in 2 weeks Activity as tolerated No driving for 24 hours No [address] while on pain medications Sitz bath BID and after BM. Stool softener daily wound: leave liam drain in. gauze followed by absorbent pad BID and PRN. Regular Diet Symptoms to Report: Fever over 101 degree F, Nausea/Vomiting Infection Signs and Symptoms to report: Increased redness, Foul odor of wound, Increased drainage Bathing instructions: May shower Operative Area Clean/Dry; Keep incision clean/dry If any problems/questions: Contact your physician or go to Emergency Room HANY KHAN MD Jan 18, 2018 12:38 pm
[2018-01-18] MEDS ORDERED: AMOX-358 PO ×2 (14:47→14:52)
[2018-01-18] MEDS ORDERED: TRAM50TA2 PO (14:49)
[2018-01-18 15:14] VITALS: BP 110/68
[2018-01-18 19:18] VITALS: BP 134/79
[2018-01-18] MEDS: MIRTAZAPINE 15 MG (REMERON) TAB PO SCH (20:07)
[2018-01-19] VITALS: BP 120/66
[2018-01-19] MEDS: PIPERACILLIN/TAZO 4.5 GM/NS 100 ML IV SCH ×4 (02:02→10:29)
[2018-01-19 04:00] VITALS: BP 141/79
[2018-01-19 08:00] VITALS: BP 152/78
--- NOTE | 2018-01-19 08:11 | Progress Note-Hospitalist ---
Subjective HPI/CC On Admission Date Seen by Provider: Jan 19, 2018 Time Seen by Provider: 08:10 Pt is an 82yoCF known to me from recent admission who was admitted to the hospital due to perirectal abscess. She underwent drainage under anesthesia yesterday by Dr Fang. I am consulted from medical management. She states she is doing well. She is having loose bowel movements and eating and drinking well. She states she just now developed some pain but otherwise has had minimal pain. She has no concerns or complaints. Subjective/Events-last exam Pt complain of rectal pain still. Tried tramadol this morning but still having pain. Does not want to take Lortab as it makes her sleeping, same of IV fentanyl. Motrin has not helped either. Discussed options for pain management and she agrees to trying half a lortab. Objective Exam Vital Signs Vital Signs Date Time Temp Pulse Resp B/P (MAP) Pulse Ox O2 Delivery O2 Flow Rate FiO2 //18 04:00 97.1 65 20 141/79 (99) 93 Room Air Capillary Refill : Less Than 3 Seconds General Appearance: No Apparent Distress, WD/WN Respiratory: Lungs Clear, No Respiratory Distress Cardiovascular: Regular Rate, Rhythm, No Murmur Gastrointestinal: Normal Bowel Sounds, Soft Neurologic/Psychiatric: Alert, Oriented x3 Results/Procedures Lab Patient resulted labs reviewed. Imaging: Reviewed Imaging Report Assessment/Plan Assessment and Plan Assess & Plan/Chief Complaint Perirectal abscess Diagnosis/Problems Diagnosis/Problems (1) Perirectal abscess Status: Acute Assessment & Plan: POD #3 Management per primary Pain management- tramadol and try 1/2 tab lortab Await cultures- sent to [facility] sensitivities still pending Continue on Zosyn- transition to augmentin at home per Dr Fang (2) Hypertension Status: Chronic Assessment & Plan: Well controlled, trend Qualifiers: Hypertension type: essential hypertension Qualified Codes: I10 - Essential (primary) hypertension (3) Hypothyroidism Status: Chronic Assessment & Plan: Continue home supplement Qualifiers: Hypothyroidism type: acquired Qualified Codes: E03.9 - Hypothyroidism, unspecified (4) Anxiety Status: Chronic Assessment & Plan: Ativan ordered Continue on Remeron (5) Discharge planning issues Assessment & Plan: Needs home health for discharge Will arrange today Lives in [place] [employer] [place] consulted, appreciate recs Clinical Quality Measures DVT/VTE Risk/Contraindication: Risk Factor Score Per Nursin RFS Level Per Nursing on Admit: 3=High VETO HORTON MD Jan 19, 2018 08:11
[2018-01-19] MEDS: LOSARTAN 50 MG (COZAAR) TAB PO SCH (08:49)
[2018-01-19] MEDS: PANTOPRAZOLE 40 MG (PROTONIX) TAB PO SCH (08:50)
[2018-01-19] MEDS: LACTOBACILLUS Acidoph/Bulgar (LACTINEX/FLORANEX) TAB PO SCH (08:50)
[2018-01-19] MEDS: HYDROcodone/APAP 7.5 MG/325 MG (LORTAB, LORCET PLUS) TABLET PO PRN (08:50)
[2018-01-19] MEDS: amLODIPine 5 MG (NORVASC) TAB PO SCH (08:50)
[2018-01-19] MEDS: LEVOTHYROXINE 25 MCG (LEVOTHROID) TAB PO SCH (08:50)
--- NOTE | 2018-01-19 09:37 | D/C HH Face to Face Order ---
D/C Face to Face Orders Instructions for Patient Patient Instructions/FollowUp: Please continue to take your medications as written. Physician to follow Patient: Dr Garcia and Dr Fang Discharge Diet for Home: No Restrictions Patient Data-Allergies,Ht & Wt Patient Allergies: Coded Allergies: Sulfa (Sulfonamide Antibiotics) (Unverified Allergy, Unknown, 01/23/14) cetirizine (Verified Allergy, Unknown, 10/08/07) ciprofloxacin (Unverified Allergy, Unknown, 01/23/14) erythromycin base (Verified Allergy, Unknown, 10/08/07) Height (Feet): 5 Height (Inches): 4.00 Weight (Pounds): 116 Weight (Ounces): 0.1 Home Health Need/Face to Face Date of Face to Face: Jan 19, 2018 Clinical Findings: Wound infection I have seen Pt [id number]: Yes Discharged To: Home Diagnosis/Conditions: Perirectal abscess Patient is Homebound due to: Pain w/ambulation Homebound Status Due to the above stated illness, injury or surgical procedure (medical condition or diagnosis) and associated clinical findings, the patient is homebound because of his/her inability to leave home except with aid of a supportive device and/or person AND leaving the home requires a considerable and taxing effort or is medically contraindicated. Pt req the following assistanc: Aid of another person Home Health Nursing Orders Home Health Services Order: Nursing Services, Wound Care-Eval/Treat Home Health Infusion Therapy Line Start Date: Jan 16, 2018 Line Start Time: 1806 Line Type: Saline Lock Site Location: Forearm Certify Stmt I certify that this patient is under my care and that I, a nurse practitioner or a physician; a social science research assistant working with me, had a face to face encounter that - meets the physician face to face encounter requirements with this patient as dated. VETO HORTON MD Jan 19, 2018 9:37 am
[2018-01-19] MEDS: clonazePAM 1 MG (KlonoPIN) TAB PO PRN (10:29)
[2018-01-19 12:00] VITALS: BP 138/79
[2018-01-19] MEDS ORDERED: ANTACID SUSP 30 ML UDC (MYLANTA) PO PRN (14:00)
== END 2018-01-19 15:30 | disposition home health service (06) | DRG 331 ==
LOC: EDUNIT# 17:24 → ER 17:25 → 4TH 19:10
PROVIDERS: ADMIT Surgery; ATTEND Surgery
PROC: 0D9P00Z Drainage of Rectum with Drainage Device, Open Approach (ICD-10-PCS; principal; 2018-01-16 10:34)
DX: K61.1 Rectal abscess (principal); I10 Essential (primary) hypertension; E03.9 Hypothyroidism, unspecified; F41.9 Anxiety disorder, unspecified; I48.91 Unspecified atrial fibrillation; I25.10 Atherosclerotic heart disease of native coronary artery without angina pectoris; K21.9 Gastro-esophageal reflux disease without esophagitis; F32.9 Major depressive disorder, single episode, unspecified; Z95.5 Presence of coronary angioplasty implant and graft
CPT/HCPCS: 36415; 74177; 80048; 80053; 81000; 83605; 85025; 87040; 87070; 87075; 87077; 87081; 87186; 87205

== ENCOUNTER → 2020-05-29 | Outpatient (CLI) | payer MEDICARE ==
[~2020-05-29] MED LIST changes: +AMLO-250 PO; -AMLO5TAB7 PO; +AMOX-358 PO; +HYDR-34 PO; +LOSA50TA63 PO; -LOSA50TA7 PO; +MIRT-94 PO; -MIRT30TA PO; -PANT40TA3 PO; +PANT40TA52 PO; +TRM50T PO
[2020-05-29 15:07] LABS: BUN/CREATININE RATIO 16; CREATININE SERUM 0.76 MG/DL (0.60-1.30); GFR ESTIMATED > 60
== END ==
LOC: RAD 14:37
PROVIDERS: ATTEND Internal Medicine Gastroenterology
DX: R10.13 Epigastric pain (principal); R68.81 Early satiety; R11.0 Nausea; R14.0 Abdominal distension (gaseous)
CPT/HCPCS: 36415; 82565; 84520

== ENCOUNTER → 2020-05-31 | Outpatient (CLI) | payer MEDICARE ==
--- NOTE | 2020-05-29 15:20 | Diagnostic Imaging Report ---
EXAMINATION: CT Abdomen Pelvis without contrast. TECHNIQUE: Multiple contiguous axial images were obtained through the abdomen and pelvis without the use of intravenous contrast. All CT scans use one or more of the following dose optimizing techniques: automated exposure control, MA and/or KvP adjustment based on a patient size and exam type, or iterative reconstruction. HISTORY: Epigastric pain. COMPARISON: 01/15/2018 FINDINGS: Limited views of the lower thorax are unremarkable. The liver is normal without focal lesion. There is no biliary ductal dilation. The gallbladder is not seen, likely surgically absent. Pancreas is normal. Spleen is normal. Adrenal glands are normal. The kidneys are normal. There is no hydronephrosis. Urinary bladder is normal. Visualized bowel is normal in caliber without obstruction or inflammation. No free fluid or air. No abdominal or pelvic lymphadenopathy. There is a 3.5 x 3.2 cm abdominal aortic aneurysm, previously 3.0 x 3.1 cm. There are no suspicious osseous lesions. IMPRESSION: 1. Increase in size of abdominal aortic aneurysm measuring up to 3.5 cm. Dictated by: Dictated on workstation # [id number]
[~2020-05-31] MED LIST changes: +BARIUM for suspension 96% w/w (Vanilla Silq Medium Density) PO ONE; +BARIUM for suspension 98% w/w (Vanilla Silq High Density) PO ONE
--- NOTE | 2020-05-31 11:21 | Diagnostic Imaging Report ---
Upper gastrointestinal examination 812 INDICATION: Abdominal pain The preliminary film was unremarkable for an acute abnormality. There was a small amount of residual contrast within the rectosigmoid colon from the CT abdomen/pelvis exam of 05/29/2020. A double contrast study was performed. The patient swallowed the contrast material without difficulty. There was no delay or obstruction to the passage of contrast through the esophagus. There is no sign of a hiatal hernia or of gastroesophageal reflux. The stomach motility was somewhat sluggish. There is no mass or ulceration evident. The duodenal bulb and proximal small bowel are unremarkable. IMPRESSION: 1. There is no evidence of a hiatal hernia or for gastroesophageal reflux. 2. The gastric motility was somewhat sluggish. There is no gastric mass or ulcer identified. 3. Th proximal small bowel where visualized is unremarkable. A complete small bowel exam is pending for further study. Dictated by: Dictated on workstation # [id number]
--- NOTE | 2020-05-31 11:57 | Diagnostic Imaging Report ---
Small bowel exam INDICATION: Abdominal pain This study was conducted immediately following the upper gastrointestinal exam. The transit time through small bowel was approximately 45 minutes (normal transit time 30 minutes to 3 hours). There is no abnormal dilatation, narrowing or mass effect involving the small bowel. The terminal ileum was spotted and was generally unremarkable. IMPRESSION: The small bowel exam is within normal limits. Dictated by: Dictated on workstation # [id number]
== END ==
LOC: RAD 08:00
PROVIDERS: ATTEND Internal Medicine Gastroenterology
DX: I71.4 Abdominal aortic aneurysm, without rupture (principal)
CPT/HCPCS: 74176; 74246; 74248

== ENCOUNTER → 2020-06-08 | Outpatient (CLI) | payer MEDICARE ==
[~2020-06-08] MED LIST changes: -BARIUM for suspension 96% w/w (Vanilla Silq Medium Density) PO ONE; -BARIUM for suspension 98% w/w (Vanilla Silq High Density) PO ONE
--- NOTE | 2020-06-08 12:26 | Diagnostic Imaging Report ---
INDICATION: Unspecified abdominal pain. COMPARISON: CT abdomen and pelvis without contrast from 05/29/2020. TECHNIQUE: Grayscale, color Doppler, and spectral Doppler imaging of the aorta and mesenteric arteries was performed. FINDINGS: Abdominal aorta is patent with a peak systolic velocity of 52 cm. Fusiform aneurysmal dilatation of the aorta is similar to prior CT measuring approximately 3 cm. When fasting, the celiac and superior mesenteric arteries are widely patent with normal low-resistant waveforms. Peak systolic velocity in the celiac axis is 151 cm/s and in the superior mesenteric artery is 138 cm/s. 3 cm from the superior mesenteric origin, the peak systolic velocity is 84 cm/s and low resistant. 5 minutes postprandial, the peak systolic velocity in the origin of the superior mesenteric artery is 160 cm/s and at 3 cm from its origin is 144 cm/s. There is maintenance of normal low-resistant waveforms. Postprandial imaging was also performed at 10 minutes, 15 minutes, and 20 minutes, there are no significantly elevated velocities within the superior mesenteric artery and the waveforms remain low resistant. IMPRESSION: 1. No features of hemodynamically significant stenosis in the superior mesenteric artery pre or postprandial. Dictated by: Dictated on workstation # [id number]
== END ==
LOC: RAD 08:50
PROVIDERS: ATTEND Internal Medicine Gastroenterology
DX: I71.4 Abdominal aortic aneurysm, without rupture (principal); R79.89 Other specified abnormal findings of blood chemistry
CPT/HCPCS: 36415; 85652; 86141; 93976

== ENCOUNTER → 2020-11-12 | Outpatient (CLI) | payer MEDICARE ==
[~2020-11-12] MED LIST changes: +CATHETER FLUSH 10 ML SYR IV PRN; +HOLD METFORMIN - RECEIVED CONTRAST 20 ML VIAL IV SCH; +IOHEXOL 350 MG/ML 100 ML (OMNIPAQUE 350) VIAL IV ONE; +MIRT-69 PO; -MIRT30TA6 PO; +NS 100 ML (IVPB) BAG IV ONE
[2020-11-12 10:26] LABS: BUN/CREATININE RATIO 14; CREATININE SERUM 0.76 MG/DL (0.60-1.30); GFR ESTIMATED > 60
--- NOTE | 2020-11-12 14:38 | Diagnostic Imaging Report ---
EXAMINATION: CT abdomen and pelvis with intravenous contrast. TECHNIQUE: Multiple contiguous axial images were obtained through the abdomen and pelvis after the uneventful administration of intravenous contrast. All CT scans use one or more of the following dose optimizing techniques: automated exposure control, MA and/or KvP adjustment based on patient size and exam type or iterative reconstruction. HISTORY: Weight loss and abdominal pain. COMPARISON: CT abdomen and pelvis 05/29/2020. FINDINGS: Lung bases: Bibasilar dependent atelectasis. Solid organs: The liver is normal without focal lesion. The gallbladder is surgically absent. Dilatation of the common bile duct. Pancreas is normal. Spleen is normal. Adrenal glands are normal. The kidneys are normal without hydronephrosis. Bowel: The stomach and small bowel are normal without obstruction. The colon is unremarkable. No findings of acute appendicitis. Peritoneum: There is no intraperitoneal free fluid or free air. No suspicious lymphadenopathy. Vasculature: There are vascular calcifications of the aorta. There is aneurysmal dilatation of the infrarenal abdominal aorta measuring up to 3.4 cm, mildly increased from 01/15/2018 but stable from 05/29/2020. No dissection. There are mild calcifications at the origin of the celiac artery without significant stenosis. The origin of the SMA is patent. Bilateral renal arteries are patent. Calcifications are seen throughout the aorta and branching vessels. Musculoskeletal: Degenerative changes of the spine without suspicious osseous lesion or compression fracture. Pelvis: The uterus and adnexa are normal. The urinary bladder is normal. IMPRESSION: 1. No acute abnormality in the abdomen or pelvis. 2. No significant stenosis of the celiac artery or superior mesenteric artery. 3. Atherosclerosis with stable aneurysmal dilatation of the infrarenal abdominal aorta measuring up to 3.4 cm. Dictated by: Dictated on workstation # [id number]
== END ==
LOC: RAD 11:15
PROVIDERS: ATTEND Surgery
DX: I71.4 Abdominal aortic aneurysm, without rupture (principal); I70.0 Atherosclerosis of aorta
CPT/HCPCS: 36415; 74177; 82565; 84520